=== PATIENT | male | born 1990 | race Two or more races ===

== ENCOUNTER 2025-06-26 08:13 | Emergency (ER) | payer MEDICAID, SELFPAY ==
[2025-06-26 08:15] VITALS: BMI 31.8
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
[2025-06-26 09:01] VITALS: BP 131/90; PULSE 83; RESP 18; TEMP 36.6; O2SAT 97
[2025-06-26 09:56] VITALS: BP 136/78; PULSE 92; RESP 18; TEMP 36.6; O2SAT 98
== END 2025-06-26 10:01 | disposition home or self-care (01) ==
PROVIDERS: Emergency Provider Physician Assistant
DX: S72.002A Fracture of unspecified part of neck of left femur, initial encounter for closed fracture (principal); S82.391A Other fracture of lower end of right tibia, initial encounter for closed fracture; W34.00XA Accidental discharge from unspecified firearms or gun, initial encounter
CPT/HCPCS: 29515; 73590; 99284; A9270